=== PATIENT | female | born 1950 | race Caucasian/White ===

== ENCOUNTER 2016-12-26 14:30 | Emergency (ER) | payer MEDICARE, OTHER ==
--- NOTE | ~2016-12-26 | CR229 ---
[facility] A Service of [facility] & [facility] RADIOLOGY TEXT RESULTS PATIENT: DAINA GREENFIELD LOCATION: [facility] : 54 UNIT #: [id number] AGE: [address]: Joann Villarreal SEX: F ORDER DR: [id number] [facility] [address] [place], [place] [address] [id number] MR#: [id number] Acc #: [id number] NAME: DAINA GREENFIELD : 1950 SEX: F STUDY DATE/TIME: 12/26/2016 14:29 UNIT: [facility] ROOM: STUDY DESCRIPTION: CR Shoulder Min 2 View Lt Attending Physician: Joann Villarreal P.A.-C. Ordering Physician: Joann Villarreal P.A.-C. Primary Care Physician: Any Alcantar M.D. MEDICAL IMAGING REPORT This report is preliminary unless electronic signature is present EXAM Left shoulder. DATE OF EXAM 12/26/2016 INDICATIONS Shoulder pain for 4 days after a fall. FINDINGS 3 views of the left shoulder were obtained. No fracture or malalignment is seen. There is no AC joint separation. There is AC joint arthropathy. Additionally, soft tissue calcification adjacent to the humeral head may reflect calcific tendinitis in the rotator cuff. IMPRESSION No acute findings in the shoulder. No fracture or malalignment. There is some AC joint arthropathy. Additionally, soft tissue calcification may reflect calcific tendinitis in the rotator cuff. Dictated by... Nestor Martinez Jr., M.D. THIS IS AN ELECTRONICALLY VERIFIED REPORT Nestor Martinez Jr., M.D. at 12/26/2016 4:55 PM OLIVIA/jewell TD: 12/26/2016 16:42 JOB #: [id number] MEDICAL IMAGING REPORT COPY
== END 2016-12-26 15:15 | disposition home or self-care (01) ==
LOC: CFTX 14:30
DX: S46.012A Strain of muscle(s) and tendon(s) of the rotator cuff of left shoulder, initial encounter (principal); I25.2 Old myocardial infarction; J45.909 Unspecified asthma, uncomplicated; Z87.891 Personal history of nicotine dependence; Z88.0 Allergy status to penicillin; Z91.040 Latex allergy status; Z88.8 Allergy status to other drugs, medicaments and biological substances; W19.XXXA Unspecified fall, initial encounter; Y92.009 Unspecified place in unspecified non-institutional (private) residence as the place of occurrence of the external cause
CPT/HCPCS: 73030; 99283

== ENCOUNTER 2017-01-30 17:02 | Observation (INO) | payer MEDICARE, OTHER ==
--- NOTE | ~2017-01-30 | EKG ---
PATIENT: DAINA GREENFIELD UNIT #: [id number] Ventricular Rate: 65 BPM Atrial Rate: 65 BPM P-R Interval: 178 ms QRS Duration: 92 ms Q-T Interval: 438 ms QTC Calculation(Bezet): 455 ms P [place]: 40 degrees Calculated R [place]: -27 degrees Calculated T [place]: 38 degrees Diagnosis Line: Normal sinus rhythm Diagnosis Line: Low voltage QRS Diagnosis Line: Cannot rule out Anterior infarct , age Diagnosis Line: undetermined Diagnosis Line: Abnormal ECG Diagnosis Line: No previous ECGs available Diagnosis Line: Confirmed by URIEL TUTTLE MD ([id number]) on 01/30/2017 Diagnosis Line: 11:01:43 PM INTERPRETING MD: PARAG SANABRIA
--- NOTE | ~2017-01-30 | EKG ---
PATIENT: DAINA GREENFIELD UNIT #: [id number] Ventricular Rate: 101 BPM Atrial Rate: 101 BPM P-R Interval: 176 ms QRS Duration: 68 ms Q-T Interval: 350 ms QTC Calculation(Bezet): 453 ms P [place]: 55 degrees Calculated R [place]: -37 degrees Calculated T [place]: 20 degrees Diagnosis Line: Sinus tachycardia Diagnosis Line: Left axis deviation Diagnosis Line: Low voltage QRS Diagnosis Line: Inferior infarct , age undetermined Diagnosis Line: Possible Anterolateral infarct , age undetermined Diagnosis Line: Abnormal ECG Diagnosis Line: No previous ECGs available Diagnosis Line: Confirmed by URIEL TUTTLE MD ([id number]) on 02/01/2017 Diagnosis Line: 6:54:42 PM INTERPRETING MD: PARAG SANABRIA
--- NOTE | ~2017-01-30 | CR63 ---
[facility] A Service of [facility] & [facility] RADIOLOGY TEXT RESULTS PATIENT: DAINA GREENFIELD LOCATION: [place] [address]- : [birth year] UNIT #: [id number] AGE: [address]: Lance Jose MD SEX: F ORDER DR: [id number] [facility] [address] [place], [place] [address] [id number] I MR#: [id number] Acc #: [id number] NAME: DAINA GREENFIELD : 1950 SEX: F STUDY DATE/TIME: 01/30/2017 17:43 UNIT: [facility] ROOM: [address] STUDY DESCRIPTION: CR Chest 2 View Attending Physician: Lance Jose M.D. Ordering Physician: Nestor Hou M.D. Primary Care Physician: Any Alcantar M.D. MEDICAL IMAGING REPORT This report is preliminary unless electronic signature is present EXAM 2 view chest. DATE OF EXAM 01/30/2017 INDICATIONS Chest pain for 1 day. Positive smoking history. FINDINGS PA and lateral views of the chest without comparison. Heart and mediastinal contours are normal. Patient is status post CABG. Lungs are clear. There is a presumed benign granuloma in the right upper lobe. No pleural effusion. IMPRESSION No acute cardiopulmonary findings. Dictated by... Navi Carney M.D. THIS IS AN ELECTRONICALLY VERIFIED REPORT Navi Carney M.D. at 01/31/2017 3:22 PM PRECIOUS/jewell TD: 01/30/2017 21:55 JOB #: [id number] MEDICAL IMAGING REPORT Page 1 of 1 COPY
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
[2017-01-30 16:45] LABS: POC - CKMB <1.0 ng/mL (0.0-7.9); POC - TROPONIN <0.05 ng/mL (<=0.05)
[2017-01-30 16:51] LABS: BASOPHIL# 0.1 X10e3 (0-0.3); BASOPHIL% 0.6 % (0-2.5); EOSINOPHIL# 0.1 X10e3 (0-0.7); EOSINOPHIL% 0.7 % (0.0-7.0); HEMATOCRIT 39.8 % (35.0-45.0); HEMOGLOBIN 13.4 gm/dL (12.0-16.0); LYMPHOCYTE# 2.3 X10e3 (1.0-3.5); LYMPHOCYTE% 22.3 % (17.0-45.0); MEAN CELL VOLUME 92.3 FL (83-96); MEAN CORPUSCULAR HEMOGLOBIN 31.1 PG (28-34); MEAN CORPUSCULAR HGB CONC 33.7 g/dL (30-36); MEAN PLATELET VOLUME 8.8 FL (6.5-11.5); MONOCYTE% 9.7 % (3.0-12.0); NEUTROPHIL# 6.9 X10e3 (1.5-7.1); NEUTROPHIL% 66.7 % (40-75); PLATELET COUNT 199 X10e3 (140-420); RED BLOOD COUNT 4.31 X10e (3.90-5.30); RED CELL DISTRIBUTION WIDTH 13.6 % (11.0-15.5); WHITE BLOOD COUNT 10.3 X10e3 (4.0-10.5)
[2017-01-30 16:56] LABS: DIFF IND NO
[2017-01-30 17:19] LABS: ALKALINE PHOSPHATASE 56 U/L (32-92); ALT (SGPT) 19 U/L (10-40); AST (SGOT) 22 U/L (10-42); BILIRUBIN,TOTAL 0.4 mg/dL (0.2-2.0); BLOOD UREA NITROGEN 15 mg/dL (9-23); BUN/CREATININE RATIO 21.42; CALCIUM SERUM 8.7 mg/dL (8.4-10.2); CARBON DIOXIDE 25 mmol/L (22-31); CHLORIDE 109 mmol/L (100-111); CREATININE SERUM 0.7 mg/dL (0.6-1.4); GLOM FILT RATE Estimated 91.6 mL/min (>60); GLUCOSE FASTING 105 mg/dL (70-110); POTASSIUM 3.9 mmol/L (3.5-5.1); PROTEIN TOTAL SERUM 6.8 g/dL (6.0-8.3); SODIUM 141 mmol/L (135-145)
[2017-01-30 17:24] LABS: BILIRUBIN, DIRECT <0.1 mg/dL (0.0-0.2); BILIRUBIN,INDIRECT 0.3 mg/dL (0.0-0.9)
[2017-01-30] MEDS ORDERED: DEXILANT60 MG PO (18:12)
[2017-01-30] MEDS ORDERED: BRILINTA60 MG PO (18:12)
[2017-01-30] MEDS ORDERED: NEURONTIN100 MG PO (18:13)
[2017-01-30] MEDS ORDERED: SYNTHROID88 MCG PO (18:13)
[2017-01-30] MEDS ORDERED: SINGULAIR PO (18:14)
[2017-01-30] MEDS ORDERED: NITROSTAT0.4 MG SL (18:17)
[2017-01-30] MEDS ORDERED: NORTRIPTYLINE H10 MG PO (18:18)
[2017-01-30] MEDS ORDERED: OXYBUTYNIN CHLO10 MG PO (18:19)
[2017-01-30] MEDS ORDERED: CRESTOR40 MG PO (18:20)
[2017-01-30] MEDS ORDERED: PROAIR RESPICL90 MCG INH (18:20)
[2017-01-30 18:23] LABS: POC - TROPONIN <0.05 ng/mL (<=0.05)
[2017-01-30] MEDS ORDERED: SPIRIVA18 MCG INH (18:25)
[2017-01-30] MEDS ORDERED: AMLODIPINE BESYL5 MG PO (18:25)
[2017-01-30 19:33] LABS: %MB 1.8 % (0.0-4.0); MB 1.6 ng/ml
[2017-01-31 08:30] LABS: %MB 1.9 % (0.0-4.0); MB 1.4 ng/ml
== END 2017-01-31 18:09 | disposition home or self-care (01) ==
LOC: CED 17:02 → CEDOF 17:45 → C3A PCU 01-31 11:15
PROVIDERS: Emergency Medicine; Internal Medicine Cardiovascular Disease
DX: R07.89 Other chest pain (principal); I25.10 Atherosclerotic heart disease of native coronary artery without angina pectoris; Z95.1 Presence of aortocoronary bypass graft; Z95.5 Presence of coronary angioplasty implant and graft; I25.2 Old myocardial infarction; H54.8 Legal blindness, as defined in USA; J44.9 Chronic obstructive pulmonary disease, unspecified; I36.1 Nonrheumatic tricuspid (valve) insufficiency; I50.30 Unspecified diastolic (congestive) heart failure; F32.9 Major depressive disorder, single episode, unspecified; E03.9 Hypothyroidism, unspecified; I10 Essential (primary) hypertension; E78.5 Hyperlipidemia, unspecified; Z79.899 Other long term (current) drug therapy; Z87.891 Personal history of nicotine dependence; Z87.898 Personal history of other specified conditions; Z80.8 Family history of malignant neoplasm of other organs or systems; Z82.3 Family history of stroke; Z90.49 Acquired absence of other specified parts of digestive tract; Z96.653 Presence of artificial knee joint, bilateral; Z98.890 Other specified postprocedural states; Z91.040 Latex allergy status; Z88.8 Allergy status to other drugs, medicaments and biological substances; Z88.6 Allergy status to analgesic agent; Z88.0 Allergy status to penicillin
CPT/HCPCS: 36415; 71020; 80048; 80076; 82550; 82553; 83880; 84484; 85025; 85379; 93005; 96374; 96375; 96376; 99285; G0378; J2270; J2405